=== PATIENT | female | born 1990 | race African-American/Black ===

== ENCOUNTER 2017-02-17 00:14 | Inpatient (IN) | payer OTHER ==
[~2017-02-17] VITALS: Ht 167.6 cm; Wt 89.8 kg
[2017-02-17] MEDS ORDERED: SODIUM CHLORIDE 0.9% 1,000 ML IV ONE (01:01)
[2017-02-17] MEDS ORDERED: MORPHINE SULFATE 2 MG/ML CPJ (NOT FOR IM USE) IV STA (01:01)
[2017-02-17] MEDS ORDERED: MORPHINE SULFATE 4 MG/ML CPJ (NOT FOR IM USE) IV NR (01:15)
[2017-02-17 01:30] LABS: BASOPHILS % 0.7 % (0.0-2.0); HEMATOCRIT. 37.6 % (36.0-48.0); HEMOGLOBIN. 12.8 g/dL (12.0-16.0); LYMPHOCYTES % 38.8 % (20.0-50.0); MEAN CORPUSCULAR HEMOGLOBIN 27.9 pg (28.0-32.0); MEAN PLATELET VOLUME 8.9 fl (7.4-10.4); MONOCYTES % 7.5 % (2.0-8.0); PLATELET 297 x1000/uL (130-400); RED BLOOD CELL COUNT 4.58 mill/uL (4.2-5.4); RED CELL DISTRIBUTION WIDTH 13.8 % (11.6-14.6)
[2017-02-17 01:33] LABS: CHLORIDE 104 mEq/L (98-107)
[2017-02-17 01:42] LABS: CARBON DIOXIDE 23 mEq/L (21-32); CREATINE KINASE 286 IU/L (26-192); HCG SCREEN NEGATIVE
[2017-02-17 02:19] LABS: BASOPHILS % 0.4 % (0.0-2.0); EOSINOPHILS % 3.4 % (0.0-5.0); HEMATOCRIT. 36.4 % (36.0-48.0); HEMOGLOBIN. 12.1 g/dL (12.0-16.0); LYMPHOCYTES % 27.6 % (20.0-50.0); MEAN CORPUSCULAR HEMOGLOBIN 27.3 pg (28.0-32.0); MEAN CORPUSCULAR VOLUME 82.1 fL (81.0-99.0); MEAN PLATELET VOLUME 8.5 fl (7.4-10.4); MONOCYTES % 8.9 % (2.0-8.0); NEUTROPHILS % 59.7 % (40.0-76.0); PLATELET 257 x1000/uL (130-400); RED BLOOD CELL COUNT 4.44 mill/uL (4.2-5.4); RED CELL DISTRIBUTION WIDTH 14.4 % (11.6-14.6)
[2017-02-17 02:19] LABS: CLARITY URINE CLEAR (CLEAR); COLOR URINE YELLOW (YELLOW); GLUCOSE URINE NEGATIVE (NEGATIVE); KETONES URINE NEGATIVE (NEGATIVE); LEUKOCYTE ESTERASE URINE NEGATIVE (NEGATIVE); NITRITE URINE NEGATIVE (NEGATIVE); OCCULT BLOOD URINE NEGATIVE (NEGATIVE); PH URINE 5.5 (4.5-8.0); PROTEIN URINE NEGATIVE (NEGATIVE); SPECIFIC GRAVITY URINE 1.009 (1.005-1.030); UROBILINOGEN URINE 0.2 E.U./dL (0.2-1.0)
[2017-02-17 02:47] LABS: INR 1.1; PARTIAL THROMBOPLASTIN TIME 30.6 sec (23.4-31.0)
[2017-02-17] MEDS ORDERED: FENTANYL CITRATE/PF 50MCG/ML 2ML VIAL IV ONE (03:00)
[2017-02-17] MEDS ORDERED: ONDANSETRON HCL 4MG/2ML VIAL IV PRN ×2 (08:00→11:30)
[2017-02-17] MEDS ORDERED: MORPHINE SULFATE 4 MG/ML CPJ (NOT FOR IM USE) IV PRN (08:00)
[2017-02-17 09:00] VITALS: BP 101/60
[2017-02-17 09:30] VITALS: BP 101/60
[2017-02-17] MEDS ORDERED: ALBU2.5V13 NEB (09:36)
[2017-02-17] MEDS ORDERED: DEXT 5%/0.45% NACL 1000ML 1,000 ML IV SCH (11:18)
[2017-02-17] MEDS ORDERED: ENOXAPARIN 30MG/0.3ML SYR SUBCUT SCH (11:27)
[2017-02-17 12:00] VITALS: BP 107/62
[2017-02-17] MEDS: HYDROMORPHONE HCL/PF 2MG/ML CPJ IV PRN ×4 (12:21→20:53)
[2017-02-17 16:00] VITALS: BP 114/55
[2017-02-17 20:00] VITALS: BP 109/52
[2017-02-18 00:24] VITALS: BP 102/82
[2017-02-18] MEDS: HYDROMORPHONE HCL/PF 2MG/ML CPJ IV PRN (00:24)
== END 2017-02-18 00:40 | disposition short-term general hospital (02) | DRG 341 ==
LOC: ER 00:38 → 6EST 02:30 → ENRESERV 07:17
PROVIDERS: ADMIT Hospitalist; ATTEND Hospitalist
DX: S32.491A Other specified fracture of right acetabulum, initial encounter for closed fracture (principal); S73.014A Posterior dislocation of right hip, initial encounter; V89.2XXA Person injured in unspecified motor-vehicle accident, traffic, initial encounter; Y93.89 Activity, other specified; Y92.488 Other paved roadways as the place of occurrence of the external cause; Y99.8 Other external cause status
CPT/HCPCS: 36415; 71010; 73502; 80053; 81003; 82550; 83690; 84703; 85025; 85610; 85730; 99285; J1170; J2270; J2405; J3010; J3490; J7030